=== PATIENT | female | born 1980 ===

== ENCOUNTER 2020-11-28 22:54 | Observation (INO) ==
[2020-11-28] MEDS ORDERED: ASPIRIN 325 MG TABLET PO STA (23:10)
[2020-11-28 23:28] LABS: Basophils # 0.1 10*3/uL (0.0-0.2); Basophils % 0.5 % (0.0-0.8); Eosinophils # 0.2 10*3/uL (0.0-0.87); Eosinophils % 1.7 % (0.00-10.9); Hematocrit 42.7 VOL% (35.7-47.0); Hemoglobin 14.3 GM/DL (12.0-16.0); Immature Granulocytes % 0.6 %; Immature Granulocytes Absolute 0.08 #; Lymphocytes # 4.4 10*3/uL (1.4-4.0); Lymphocytes % 34.9 % (21.3-54.2); Mean Corpuscular HGB Conc 33.5 GM/DL (32-36); Mean Corpuscular Volume 95.1 FL (87-102); Mean Platelet Volume 9.9 FL (9.6-12.0); Monocytes % 4.7 % (1.7-12.7); Neutrophils % 57.6 % (38.7-73.9); Platelet Count 274 T/CUMM (130-400); Red Blood Count 4.49 MC/CUMM (3.8-5.5); Red Cell Distribution Width 13.1 % (9.3-17.3); White Blood Count 12.7 T/CUMM (4-12)
[2020-11-28 23:54] LABS: Alanine Aminotransferase 25 U/L (13-56); Albumin 3.4 G/DL (3.4-5.0); Alkaline Phosphatase 103 U/L (45-117); Aspartate Amino Transferase 12 U/L (0-37); Bilirubin,Total < 0.39 MG/DL (0.20-1.00); Blood Urea Nitrogen 9 MG/DL (7-18); Calcium 8.7 MG/DL (8.5-10.1); Carbon Dioxide 29 MMOL/L (21-32); Estimated Glom Filtration Rate 118 ML/MIN; Glucose 195 MG/DL (74-106); Osmolality,Calculated 273.1 MOS/KG (273-304); Potassium 3.5 MMOL/L (3.5-5.1); Sodium 135 MMOL/L (136-145); Total Protein 7.3 G/DL (6.4-8.2)
[2020-11-28] MEDS ORDERED: PANTOPRAZOLE 40 MG VIAL IV STA (23:57)
[2020-11-28] MEDS ORDERED: NITROGLYCERIN 2% OINT 1 INCH/GM PACK TOP STA (23:57)
[2020-11-28] MEDS ORDERED: MORPHINE 2 MG/1 ML SYRINGE IV STA (23:57)
[2020-11-28] MEDS ORDERED: ONDANSETRON 4 MG/2 ML VIAL IV STA (23:57)
[2020-11-28] MEDS ORDERED: ALUM/MAG/SIMETH/LIDO VISC 1:1 30 ML BOTTLE PO STA (23:57)
[2020-11-28] MEDS ORDERED: ENOXAPARIN 100 MG/ML SYRINGE SUBCUT STA (23:57)
[2020-11-29] MEDS ORDERED: ACETAMINOPHEN 325 MG TABLET PO PRN (00:45)
[2020-11-29] MEDS ORDERED: DEXTROSE 50% 25 GM/50 ML VIAL IV PRN (00:45)
[2020-11-29] MEDS ORDERED: KETOROLAC 30 MG/1 ML VIAL IV ONE (00:45)
[2020-11-29] MEDS ORDERED: hydrALAZINE 20 MG/1 ML VIAL IV PRN (00:45)
[2020-11-29] MEDS ORDERED: GLUCAGON 1 MG VIAL IM PRN (00:45)
[2020-11-29] MEDS ORDERED: NICOTINE 21 MG/24 HR PATCH TRANSDERM PRN (01:23)
[2020-11-29 02:47] LABS: Atypical Lymphocytes Few; Reactive Lymphocytes 2+
[2020-11-29 02:48] LABS: Hypochromasia 1+; Platelet Estimate Normal
[2020-11-29 03:43] LABS: Calcium 8.5 MG/DL (8.5-10.1); Potassium 3.5 MMOL/L (3.5-5.1); Risk Ratio 5.12; Thyroid Stimulating Hormone 4.23 uIU/ml (0.358-3.74); VLDL Cholesterol 33.2 MG/DL
[2020-11-29 07:00] LABS: Basophils # 0.1 10*3/uL (0.0-0.2); Basophils % 0.5 % (0.0-0.8); Eosinophils # 0.2 10*3/uL (0.0-0.87); Eosinophils % 1.7 % (0.00-10.9); Hematocrit 43.5 VOL% (35.7-47.0); Hemoglobin 14.2 GM/DL (12.0-16.0); Immature Granulocytes % 0.6 %; Immature Granulocytes Absolute 0.06 #; Lymphocytes % 38.8 % (21.3-54.2); Mean Corpuscular HGB Conc 32.6 GM/DL (32-36); Mean Corpuscular Volume 96.2 FL (87-102); Monocytes % 5.4 % (1.7-12.7); Platelet Count 254 T/CUMM (130-400); Red Blood Count 4.52 MC/CUMM (3.8-5.5); White Blood Count 10.4 T/CUMM (4-12)
[2020-11-29] MEDS ORDERED: NITROGLYCERIN SL 0.4 MG TABLET SL PRN (07:07)
[2020-11-29 07:55] LABS: Atypical Lymphocytes Few
[2020-11-29] MEDS: INSULIN REGULAR 100 UNIT/ML SUBCUT SCH ×3 (09:30→17:18)
[2020-11-29] MEDS ORDERED: DIAZEPAM 5 MG TABLET PO ONE (11:21)
[2020-11-29] MEDS ORDERED: diphenhydrAMINE CAP 25 MG CAPSULE PO ONE (11:21)
[2020-11-29] MEDS: ASPIRIN 325 MG TABLET PO SCH (11:25)
[2020-11-29] MEDS: PANTOPRAZOLE 40 MG TABLET PO SCH (11:25)
[2020-11-29] MEDS ORDERED: SODIUM CHLORIDE 0.9% 1,000 ML IV SCH (11:30)
[2020-11-29] MEDS ORDERED: PLECANATIDE 3 MG PO SCH (11:45)
[2020-11-29] MEDS ORDERED: NABUMETONE 750 MG PO SCH (11:45)
[2020-11-29] MEDS: busPIRone 10 MG TABLET PO SCH ×2 (11:55→20:59)
[2020-11-29] MEDS: ESCITALOPRAM 10 MG TABLET PO SCH (12:06)
[2020-11-29] MEDS ORDERED: HEPARIN/NACL 0.9% 2 UNITS/ML 2,000 UNIT/1,000 ML BAG IV ONE (12:26)
[2020-11-29] MEDS ORDERED: LIDOCAINE 1% 20 ML VIAL ONE (12:26)
[2020-11-29] MEDS ORDERED: MIDAZOLAM 2 MG/2 ML VIAL ONE ×3 (12:27→12:44)
[2020-11-29] MEDS ORDERED: fentaNYL 100 MCG/2 ML VIAL ONE (12:27)
[2020-11-29] MEDS ORDERED: diphenhydrAMINE 50 MG/1 ML VIAL ONE (12:47)
[2020-11-29 13:07] LABS: Barbiturates Screen,Urine Negative (Negative); Benzodiazepines Screen,Urine Positive (Negative); Cannabinoid Screen,Urine Negative (Negative); Opiate Screen,Urine Positive (Negative); Phencyclidine Screen,Urine Negative (Negative)
[2020-11-29] MEDS ORDERED: ENOXAPARIN 40 MG/0.4 ML SYRINGE SUBCUT SCH (21:00)
[2020-11-29] MEDS: MORPHINE 2 MG/1 ML SYRINGE IV PRN (21:25)
[2020-11-30] MEDS: INSULIN REGULAR 100 UNIT/ML SUBCUT SCH ×2 (00:54→08:39)
[2020-11-30] MEDS: MORPHINE 2 MG/1 ML SYRINGE IV PRN (02:07)
[2020-11-30 08:16] VITALS: BP 133/76
[2020-11-30] MEDS: busPIRone 10 MG TABLET PO SCH (08:37)
[2020-11-30] MEDS: PANTOPRAZOLE 40 MG TABLET PO SCH (08:37)
[2020-11-30] MEDS: ESCITALOPRAM 10 MG TABLET PO SCH (08:37)
[2020-11-30] MEDS: ASPIRIN 325 MG TABLET PO SCH (08:37)
[2020-11-30 10:57] LABS: Basophils # 0.1 10*3/uL (0.0-0.2); Basophils % 0.5 % (0.0-0.8); Eosinophils # 0.2 10*3/uL (0.0-0.87); Eosinophils % 1.5 % (0.00-10.9); Hematocrit 44.3 VOL% (35.7-47.0); Hemoglobin 14.2 GM/DL (12.0-16.0); Immature Granulocytes % 0.6 %; Immature Granulocytes Absolute 0.07 #; Lymphocytes # 3.3 10*3/uL (1.4-4.0); Lymphocytes % 27.4 % (21.3-54.2); Mean Corpuscular HGB Conc 32.1 GM/DL (32-36); Mean Corpuscular Volume 96.7 FL (87-102); Mean Platelet Volume 10.1 FL (9.6-12.0); Monocytes % 4.9 % (1.7-12.7); Neutrophils % 65.1 % (38.7-73.9); Platelet Count 266 T/CUMM (130-400); Red Blood Count 4.58 MC/CUMM (3.8-5.5); Red Cell Distribution Width 13.1 % (9.3-17.3); White Blood Count 11.9 T/CUMM (4-12)
[2020-11-30 11:07] LABS: Calcium 8.6 MG/DL (8.5-10.1); Potassium 4.2 MMOL/L (3.5-5.1)
== END 2020-11-30 12:20 | disposition home or self-care (01) ==
LOC: N.ED 22:54 → N.EDINP 22:54 → N.TELES 11-29 03:30
PROVIDERS: ADMIT Internal Medicine; ATTEND Internal Medicine
PROC: CLCCHCL (ICD-10-PCS; 2020-11-29 17:45)